=== PATIENT | male | born 1970 | race Caucasian/White ===

== ENCOUNTER 2024-02-09 20:33 | Outpatient (REF) | payer MEDICAID, SELFPAY ==
[2024-02-09 21:23] LABS: ALT 51 U/L (16-63); AST 36 U/L (15-37); Albumin 4.5 g/dL (3.4-5.0); Alkaline Phosphatase 86 U/L (46-116); Anion Gap 8.9 mmol/L (3-11); BUN 14 mg/dL (7-18); Bilirubin, Total 0.5 mg/dL (0.2-1.0); CO2 30.1 mmol/L (21.0-32.0); CREATININE 0.9 mg/dL (0.70-1.30); Calcium 9.3 mg/dL (8.5-10.1); Calculated LDL 139 mg/dL (<100); Chloride 102 mmol/L (98-107); Cholesterol 220 mg/dL (<200); Estimated GFR 102.76 (mL/min/1.73m2); Glucose 92 mg/dL (74-106); HDL Cholesterol 64 mg/dL (40-60); Potassium 3.3 mmol/L (3.5-5.1); Sodium 141 mmol/L (136-145); Triglyceride 87 mg/dL (<150)
== END 2024-02-09 20:34 | disposition home or self-care (01) ==
LOC: NCHCN 20:33
PROVIDERS: PCP Physician Assistant Medical; Visit Provider Nurse Practitioner Family
DX: I10 Essential (primary) hypertension (principal); E78.5 Hyperlipidemia, unspecified
CPT/HCPCS: 80053; 80061

== ENCOUNTER 2024-04-01 19:39 | Outpatient (REF) | payer MEDICAID, SELFPAY ==
[2024-04-01 20:15] LABS: BUN 12 mg/dL (7-18); CREATININE 0.9 mg/dL (0.70-1.30); Calcium 9.1 mg/dL (8.5-10.1); Chloride 103 mmol/L (98-107); Estimated GFR 102.12 (mL/min/1.73m2); Glucose 93 mg/dL (74-106); Potassium 3.7 mmol/L (3.5-5.1); Sodium 142 mmol/L (136-145)
== END 2024-04-01 19:40 | disposition home or self-care (01) ==
LOC: NCHCN 19:39
PROVIDERS: PCP Physician Assistant Medical; Visit Provider Nurse Practitioner Family
DX: E78.5 Hyperlipidemia, unspecified (principal)
CPT/HCPCS: 80048

== ENCOUNTER 2025-03-05 09:00 | Outpatient (CLI) | payer MEDICAID, SELFPAY ==
--- NOTE | 2025-03-05 08:15 | DI.RAD_ITS ---
Exam(s) XR SHOULDER LT COMPLETE 2+V EXAM: XR SHOULDER LT COMPLETE 2+V CLINICAL HISTORY: evaluate shoulder. TECHNIQUE: 2D digital imaging was performed of the left shoulder. Three images were obtained. Axil aniyah and Grashey views were obtained. COMPARISON: CR XR SHOULDER MIN 2V LT from 02/05/2025 FINDINGS: BONES: No acute fracture is present. No bony destructive lesion is seen. JOINTS: No dislocation present. The glenohumeral joint is well maintained. There are mild degenerati ve changes seen at the acromioclavicular joint. SOFT TISSUE: Normal. 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 DATA REPOSITORY: RADIATION DOSE DELIVERED:
--- NOTE | 2025-03-05 08:30 | DI.RAD_ITS ---
Exam(s) XR SHOULDER RT COMPLETE 2+V EXAM: XR SHOULDER RT COMPLETE 2+V CLINICAL HISTORY: evaluate pain. TECHNIQUE: 2D digital imaging was performed of the right shoulder. Two images were obtained. Axill kate and Grashey views were obtained. COMPARISON: There are no priors for comparison. FINDINGS: BONES: No acute fracture is present. No bony destructive lesion is seen. JOINTS: No dislocation present. There are mild degenerative changes seen at the acromioclavicular mago nt. The glenohumeral joint is well maintained. SOFT TISSUE: Normal. IMPRESSION: Mild degenerative changes seen at the acromioclavicular joint. DATA REPOSITORY: RADIATION DOSE DELIVERED:
== END 2025-03-05 09:01 | disposition home or self-care (01) ==
PROVIDERS: PCP Physician Assistant Medical; Visit Provider Student in an Organized Health Care Education/Training Program
DX: M25.512 Pain in left shoulder (principal); M25.511 Pain in right shoulder; M75.102 Unspecified rotator cuff tear or rupture of left shoulder, not specified as traumatic; M75.101 Unspecified rotator cuff tear or rupture of right shoulder, not specified as traumatic; M19.012 Primary osteoarthritis, left shoulder; M19.011 Primary osteoarthritis, right shoulder
CPT/HCPCS: 73030

== ENCOUNTER 2025-03-06 01:13 | Outpatient (CLI) | payer MEDICAID, SELFPAY ==
--- NOTE | 2025-03-06 06:15 | DI.RAD_ITS ---
Exam(s) XR FACIAL BONES LIMITED EXAM: XR FACIAL BONES LIMITED CLINICAL HISTORY: FB IN FOREHEAD-PRE MRI EXAM,lt rotator cuff tear, m75.102. TECHNIQUE: 2D digital imaging was performed. COMPARISON: No exams were available for comparison 2 images were obtained. FINDINGS: BONES: No evidence of fracture. SOFT TISSUES: There is a 2 mm radiopaque density in the soft tissues anterior to the left frontal sin us. No radiopaque foreign bodies are seen in the orbits. IMPRESSION: 2 mm radiopaque foreign body in the soft tissues anterior to the left frontal sinus. DATA REPOSITORY: RADIATION DOSE DELIVERED:
== END 2025-03-06 01:33 ==
LOC: DI 01:13
PROVIDERS: PCP Nurse Practitioner Family; Visit Provider Student in an Organized Health Care Education/Training Program
DX: M75.102 Unspecified rotator cuff tear or rupture of left shoulder, not specified as traumatic (principal)
CPT/HCPCS: 70140

== ENCOUNTER 2025-04-04 00:30 | Outpatient (CLI) | payer MEDICAID, SELFPAY ==
--- NOTE | 2025-04-04 07:15 | DI.MRI_ITS ---
Exam(s) MR UPPER JOINT LT WO EXAM: MR UPPER JOINT LT WO CLINICAL HISTORY: L SHOULDER PAIN,lt rotator cuff tear,m75.102. TECHNIQUE: Multiplanar multisequence MRI was performed. COMPARISON: Plain films 05 March 2025 FINDINGS: BONES: There is no fracture or contusion pattern. JOINTS:The acromioclavicular joint shows mild to moderate degenerative changes with some inferior spu rring. The glenohumeral joint is normal. TENDONS: Supraspinatus: Thickening and increased signal distally. Partial thickness tear. Infraspinatus: Some edema. No visible focal tear. Subscapularis: Unremarkable. Teres Minor: Unremarkable. Biceps and [place]: Unremarkable. MUSCLES: Unremarkable. GLENOID LABRUM: Small linear area of high signal in the posterior superior labrum may represent SOFT TISSUES: Unremarkable. BURSAE: Subacromial and subdeltoid bursae shows a small amount of fluid.. IMPRESSION: Tendinosis and partial tear of the supraspinatus tendon. Infraspinatus tendinosis. Question of a posterior labral tear versus degenerative change. DATA REPOSITORY:
== END 2025-04-04 00:50 ==
LOC: DI 00:30
PROVIDERS: PCP Nurse Practitioner Family; Visit Provider Student in an Organized Health Care Education/Training Program
DX: M75.102 Unspecified rotator cuff tear or rupture of left shoulder, not specified as traumatic (principal); M67.814 Other specified disorders of tendon, left shoulder
CPT/HCPCS: 73221

== ENCOUNTER 2025-08-13 08:44 | Outpatient (REF) | payer MEDICAID, SELFPAY ==
[2025-08-13 20:30] LABS: ALT 63 U/L (16-63); AST 42 U/L (15-37); Albumin 4.5 g/dL (3.4-5.0); Alkaline Phosphatase 93 U/L (46-116); Anion Gap 7.3 mmol/L (3-11); BUN 15 mg/dL (7-18); Bilirubin, Total 0.8 mg/dL (0.2-1.0); CO2 32.7 mmol/L (21.0-32.0); Calcium 9.2 mg/dL (8.5-10.1); Calculated LDL 136 mg/dL (<100); Chloride 99 mmol/L (98-107); Cholesterol 221 mg/dL (<200); Estimated GFR 101.49 (mL/min/1.73m2); Glucose 106 mg/dL (74-106); HDL Cholesterol 65 mg/dL (>or=40); Potassium 3.9 mmol/L (3.5-5.1); Sodium 139 mmol/L (136-145); Total Protein 7.8 g/dL (6.4-8.2); Triglyceride 101 mg/dL (<150)
== END 2025-08-13 08:45 | disposition home or self-care (01) ==
LOC: NCHCN 08:44
PROVIDERS: PCP Nurse Practitioner Family; Visit Provider Nurse Practitioner Family
DX: E78.5 Hyperlipidemia, unspecified (principal)
CPT/HCPCS: 80053; 80061